=== PATIENT | male | born 1975 | race Caucasian/White ===

== ENCOUNTER 2016-11-27 10:39 | Emergency (ER) | payer SELFPAY ==
--- NOTE | 2016-11-27 11:02 | ED Physician Documentation ---
Upper Respiratory Symptoms - HISTORIAN Historian: patient - HPI Chief Complaint: Cough/ Upper Respiratory Additional Information: dane fever sore throat 2pk per day smoker Onset: days ago (2-3) Duration: intermittent episodes Context: recent foreign travel. denies: insect bite(s) Associated Symptoms: fever, sinus pain, sinus drainage, sore throat, chest pain , productive cough, shortness of breath. denies: bloody cough Worsened by Deep Breath: Yes - ROS CONST/EYES: denies: weakness, eye redness, eye itching CVS/RESP: none LYMPH: denies: leg swelling, rash, swollen glands GI/: none, abdominal pain. denies: problems urinating, vomiting, nausea MS/SKIN: denies: rash - PAST HX Lung Disease: COPD PE Risk Factors: hypertension, other (nocotine abuse) Surgeries/Procedures: other (arm nose) Allergies/Adverse Reactions: Allergies Allergy/AdvReac Type Severity Reaction Status Date / Time No Known Allergies Allergy Verified 01/20/16 21:37 Home Medications: Ambulatory Orders Medication Instructions Recorded Lisinopril [Zestril] 1 tab PO D 01/20/16 - SOCIAL HX Smoking History: greater than 1 pack/day Alcohol Use: heavy Drug Use: none - FAMILY HX Family History: no significant history - VITAL SIGNS Vital Signs: Vital Signs Temp Pulse Resp BP Pulse Ox 138/76 10/16/16 22:03 - REVIEWED ASSESSMENTS Nursing Assessment Reviewed: Yes Vitals Reviewed: Yes Upper Respiratory Symptoms - EXAM General Appearance: moderate distress EENT: eyes nml inspection, frontal, maxillary, TM erythema, nose nml, pharyngeal erythema, other (sig cough on deep breath). No: ear nml, pharynx nml Neck: normal inspection Respiratory: prolonged expirations, decreased air movement, wheezes, rales, rhonchi Abdomen: non-tender CVS: reg rate & rhythm, heart sounds normal Skin: No: cyanosis, diaphoresis Extremities: non-tender Neuro/Psych: oriented x3, mood/affect nml Discharge Home Medications: Ambulatory Orders Lisinopril [Zestril] 1 tab PO D 01/20/16
[2016-11-27 11:27] VITALS: BP 153/100
== END 2016-11-27 11:27 | disposition home or self-care (01) ==
LOC: ED 10:39
DX: J06.9 Acute upper respiratory infection, unspecified (principal); F17.210 Nicotine dependence, cigarettes, uncomplicated
CPT/HCPCS: 99283

== ENCOUNTER 2018-08-18 14:50 | Emergency (ER) | payer SELFPAY ==
[2018-08-18 15:06] VITALS: BP 125/76
--- NOTE | 2018-08-18 16:04 | ED Physician Documentation ---
Upper Respiratory Symptoms - HISTORIAN Historian: patient, spouse - HPI Stated Complaint: Cough Chief Complaint: Cough/ Upper Respiratory Additional Information: pt c/o 3weeks of cough prod greenish sputum fever to approx 102 chills rigors weakness lethargy anorexia weakness lethargy significant. no prev similar condition Onset: days ago Context: recent foreign travel. denies: recent chemotherapy Severity: moderate, severe Associated Symptoms: fever, chills, sweating, runny nose, productive cough, shortness of breath, other (chest discomfort) - ROS CONST/EYES: weakness CVS/RESP: shortness of breath GI/: none (except anorexia) - PAST HX Lung Disease: other (htn - ok today) PE Risk Factors: hypertension Immunizations: denies: UTD Allergies/Adverse Reactions: Allergies Allergy/AdvReac Type Severity Reaction Status Date / Time No Known Allergies Allergy Verified 08/18/18 15:06 Home Medications: Ambulatory Orders Medication Instructions Recorded Lisinopril [Zestril] 1 tab PO D 01/20/16 Amoxicillin/Potassium Clav 1 each PO QID #40 tablet 08/18/18 [Augmentin 500-125 Tablet] Hydrochlorothiazide [Hydrodiuril] 1 tab PO DAILY 08/18/18 Oxycodone HCl/Acetaminophen 1 tab PO PRN PRN 08/18/18 [Percocet 10/325] Zolpidem Tartrate [Ambien CR] 1 tab PO HS 08/18/18 predniSONE [Deltasone] 20 mg PO BID #20 tablet 08/18/18 - SOCIAL HX Smoking History: greater than 1 pack/day (est 2-3 plus 1+ liters DR PEPPER daily) Alcohol Use: occasionally Drug Use: none - FAMILY HX Family History: no significant history - VITAL SIGNS Vital Signs: Vital Signs Temp Pulse Resp BP Pulse Ox 53 L 15 125/76 97 08/18/18 15:55 08/18/18 15:55 08/18/18 15:55 08/18/18 15:55 - REVIEWED ASSESSMENTS Nursing Assessment Reviewed: Yes Vitals Reviewed: Yes ED Results Lab/Radiology - Radiology Radiology Impressions: pt desired tx w/o lab due to no insurance-will tx on history and phys exam Upper Respiratory Symptoms - EXAM General Appearance: mild distress, moderate distress EENT: eyes nml inspection, TM erythema (very slight), pharynx nml (rt tonsil quite enlarged but not strept like-min sore throat), tonsillar swelling. No: pain over sinuses Neck: normal inspection, thyroid normal, supple. No: lymphadenopathy Respiratory: no pain on inspiration, speaks full sentences, respiratory distress, decreased air movement, wheezes, rales. No: no resp. distress, breath sounds nml, stridor, no pleuritic chest pain, resp. fatigue Abdomen: non-tender, no distention CVS: reg rate & rhythm, heart sounds normal Skin: color nml, no rash, warm,dry. No: cyanosis, diaphoresis, pallor, signs of IVDA Extremities: non-tender, normal range of motion Neuro/Psych: oriented x3, neuro intact, mood/affect nml Discharge Clincal Impression: lt lower pneumonia Prescriptions: Amoxicillin/Potassium Clav [Augmentin 500-125 Tablet] 1 each PO QID #40 tablet predniSONE [Deltasone] 20 mg PO BID #20 tablet Referrals: Primary Doctor,No [Primary Care Provider] - 2 Days Comments: home ryan [place] dc cigarettes xs water meds f/u w/pcp or rt ed prn Condition: Good Disposition: 01 HOME, SELF-CARE Decision to Admit: NO Decision Time: 16:17
== END 2018-08-18 15:55 | disposition home or self-care (01) ==
LOC: ED 14:50
DX: J18.9 Pneumonia, unspecified organism (principal); Z72.0 Tobacco use
CPT/HCPCS: 99281